=== PATIENT | male | born 1945 | race Caucasian/White ===

== ENCOUNTER 2017-01-08 00:34 | Emergency (ER) | payer MEDICARE ==
--- NOTE | 2017-01-08 01:06 | ERPHSYRPT ---
- History of Present Illness Time Seen by Provider: 01/08/17 01:00 Historian: patient Exam Limitations: no limitations Patient Subjective Stated Complaint: pt states he had a 2 episodes of chest pressure, midsternal. last episode lasted approx 5 minutes. stated he was short of breath during Triage Nursing Assessment: pt alert and oriented, answers questions approp. skin pink warm and dry. respirations nonlabored with lungs cta. pt ambualted to room. steady gait noted. heart rate78 sunus rhythm on m onitor. Physician History: This is a 71-year-old white male previously healthy arrives with complaint of pain in his anterior sternal region described as pressure associated with shortness of breath lasting 5 minutes which occurred approximately 7:00 patient took an Excedrin tablet and the pain went away. Patient states he laid down to go to bed then approximately 11:00 patient began to have the same pain again a pressure associated with shortness of breath lasting 5 minutes therefore he came into the emergency room. Patient denies nausea vomiting he has no fevers he states he has not been ill. Past medical history includes arthritis of the hips and shoulders. Past surgical history includes umbilical hernia repair. Social history patient denies tobacco alcohol or illicit drug use. Timing/Duration: today (pain lasting 5 minutes at 7:00p.m. and 11:00p.m. respectively) Activities at Onset: rest Quality: pressure Location: substernal Chest Pain Radiation: no radiation Severity of Pain-Max: moderate Severity of Pain-Current: none Modifying Factors: Improves With: nothing Associated Symptoms: shortness of breath, No nausea, No vomiting, No palpitations, No heartburn, No abdominal pain, No cough, No hurts to breathe, No diaphoresis, No chills, No fever, No fatigue, No weakness, No swelling/lump in chest, No syncope, No rash, No headache, No dizziness, No edema, No back pain Prior Chest Pain/Cardiac Workup: no prior chest pain Aspirin Treatment Today: 81 mg x 4 (1 full sized Excedrin tablet at home at 7 PM ) Allergies/Adverse Reactions: No Known Drug Allergies Allergy (Verified 01/08/17 01:25) Home Medications: Aspirin [Aspirin EC] 81 mg PO DAILY 01/08/17 [History] Cyclobenzaprine HCl 10 mg [Cyclobenzaprine 10 MG] 10 mg PO TID 01/08/17 [ History] Fenofibrate Nanocrystallized [Fenofibrate] 145 mg PO DAILY 01/08/17 [History] Meloxicam 7.5 mg [Mobic 7.5 MG] 7.5 mg PO BID 01/08/17 [History] Hx Tetanus, Diphtheria Vaccination/Date Given: Yes Hx Influenza Vaccination/Date Given: No Hx Pneumococcal Vaccination/Date Given: No Immunizations Up to Date: Yes - Review of Systems Constitutional: No Fever, No Chills Eyes: No Symptoms Ears, Nose, & Throat: No Symptoms Respiratory: Dyspnea, No Cough Cardiac: Chest Pain, No Edema, No Palpitations, No Syncope, No Orthopnea, No PND Abdominal/Gastrointestinal: No Abdominal Pain, No Vomiting, No Diarrhea, No Constipation, No Hematemesis, No Hematochezia, No Melena, No Dysphagia, No Appetite Changes Genitourinary Symptoms: No Dysuria Musculoskeletal: No Back Pain, No Neck Pain Skin: No Rash Neurological: No Dizziness, No Focal Weakness, No Sensory Changes Psychological: No Symptoms Endocrine: No Symptoms All Other Systems: Reviewed and Negative - Past Medical History Pertinent Past Medical History: No Neurological History: No Pertinent History ENT History: No Pertinent History Cardiac History: No Pertinent History Respiratory History: No Pertinent History Endocrine Medical History: No Pertinent History Musculoskeletal History: No Pertinent History GI Medical History: No Pertinent History History: No Pertinent History Psycho-Social History: No Pertinent History Male Reproductive Disorders: No Pertinent History Other Medical History: hx kidney stone passed with lithotripsy - Past Surgical History Past Surgical History: No Neuro Surgical History: No Pertinent History Cardiac: No Pertinent History Respiratory: No Pertinent History Gastrointestinal: No Pertinent History Genitourinary: No Pertinent History Musculoskeletal: No Pertinent History Male Surgical History: No Pertinent History - Social History Smoking Status: Never smoker Exposure to second hand smoke: No Drug Use: none Patient Lives Alone: No - Nursing Vital Signs Temperature: 98.2 F Temperature Source: Oral Pulse Rate: 79 Respiratory Rate: 16 Pain Intensity: 0 - Physical Exam General Appearance: no apparent distress, alert Eye Exam: PERRL/EOMI, eyes nml inspection Ears, Nose, Throat Exam: normal ENT inspection, moist mucous membranes Neck Exam: normal inspection, non-tender, supple, full range of motion Respiratory Exam: normal breath sounds, lungs clear, No respiratory distress Cardiovascular Exam: regular rate/rhythm, normal heart sounds Gastrointestinal/Abdomen Exam: soft, No tenderness, No mass Back Exam: normal inspection, No CVA tenderness, No vertebral tenderness Extremity Exam: normal inspection, normal range of motion Neurologic Exam: alert, oriented x 3, cooperative, normal mood/affect, sensation nml, No motor deficits Skin Exam: normal color, warm, dry SpO2 Interpretation: normal (99%) SpO2: 99 Oxygen Delivery: Room Air - Course Nursing assessment & vital signs reviewed: Yes EKG Interpreted by Me: RATE (81 bpm), NORMAL AXIS, NORMAL QRS, Other (EKG: Normal sinus arrhythmia, 81 bpm normal axis, no acute ST or T wave changes, essentially normal EKG) - Radiology Exams Chest X-ray Interpretation: Interpreted by me, Other (cxr: no acute disease process noted) Ordered Tests: Active Orders 24 hr Category Date Time Status Mussel Opener STAT Care 01/08/17 01:00 Active EKG-ER Only STAT Care 01/08/17 01:00 Active IV Insertion STAT Care 01/08/17 01:00 Active Pulse Oximetry (ED) STAT Care 01/08/17 01:00 Active CHEST 1 VIEW (PORTABLE) Stat Exams 01/08/17 01:00 Taken AMYLASE Stat Lab 01/08/17 01:06 Completed CBC W DIFF Stat Lab 01/08/17 01:06 Completed CMP Stat Lab 01/08/17 01:06 Completed D-DIMER QUANTITATION Stat Lab 01/08/17 01:06 Completed LIPASE Stat Lab 01/08/17 01:06 Completed TROPONIN Q3H Lab 01/08/17 01:07 Completed TROPONIN Q3H Lab 01/08/17 04:00 Ordered TROPONIN Q3H Lab 01/08/17 07:00 Ordered TROPONIN Q3H Lab 01/08/17 10:00 Ordered TROPONIN Q3H Lab 01/08/17 13:00 Ordered Lab/Rad Data: Laboratory Result Diagrams 01/08/17 01:06 01/08/17 01:06 Laboratory Results 01/08/17 01/08/17 01/08/17 Range/Units 01:07 01:06 01:06 WBC (4.0-10.5) K/mm3 RBC (4.1-5.6) M/mm3 Hgb (12.5-18.0) gm/dl Hct (42-50) % MCV (78-100) fl MCH (26-32) pg MCHC (32-36) g/dl RDW (11.5-14.0) % Plt Count (150-450) K/mm3 MPV (6-9.5) fl Gran % (36.0-66.0) % Lymphocytes % (24.0-44.0) % Monocytes % (0.0-12.0) % Eosinophils % (0.00-5.0) % Basophils % (0.0-0.4) % Basophils # (0-0.4) D-Dimer 0.595 H* (0.00-0.49) mg/L Sodium (136-145) mEq/L Potassium (3.5-5.1) mEq/L Chloride (98-107) mEq/L Carbon Dioxide (21-32) mEq/L Anion Gap (5-15) MEQ/L BUN (9-20) mg/dL Creatinine (0.55-1.30) mg/dl Estimated GFR ML/MIN Glucose (70-110) MG/DL Calcium (8.5-10.1) mg/dL Total Bilirubin (0.2-1.0) mg/dL AST (15-37) U/L ALT (12-78) U/L Alkaline Phosphatase (46-116) U/L Troponin I 0.063 H* (0.000-0.056) ng/ml Serum Total Protein (6.4-8.2) gm/dL Albumin (3.4-5.0) g/dL Amylase 69 (25-115) U/L Lipase 231 (73-393) U/L 01/08/17 01/08/17 Range/Units 01:06 01:06 WBC 7.4 (4.0-10.5) K/mm3 RBC 5.29 (4.1-5.6) M/mm3 Hgb 15.8 (12.5-18.0) gm/dl Hct 47.2 (42-50) % MCV 89.2 (78-100) fl MCH 29.9 (26-32) pg MCHC 33.5 (32-36) g/dl RDW 13.9 (11.5-14.0) % Plt Count 359 (150-450) K/mm3 MPV 10.1 H (6-9.5) fl Gran % 30.3 L (36.0-66.0) % Lymphocytes % 47.3 H (24.0-44.0) % Monocytes % 12.9 H (0.0-12.0) % Eosinophils % 8.7 H (0.00-5.0) % Basophils % 0.8 (0.0-0.4) % Basophils # 0.06 (0-0.4) D-Dimer (0.00-0.49) mg/L Sodium 142 (136-145) mEq/L Potassium 4.0 (3.5-5.1) mEq/L Chloride 106 (98-107) mEq/L Carbon Dioxide 26.3 (21-32) mEq/L Anion Gap 13.7 (5-15) MEQ/L BUN 20 (9-20) mg/dL Creatinine 1.45 H (0.55-1.30) mg/dl Estimated GFR 51 ML/MIN Glucose 126 H (70-110) MG/DL Calcium 8.9 (8.5-10.1) mg/dL Total Bilirubin 0.4 (0.2-1.0) mg/dL AST 26 (15-37) U/L ALT 30 (12-78) U/L Alkaline Phosphatase 97 (46-116) U/L Troponin I (0.000-0.056) ng/ml Serum Total Protein 7.6 (6.4-8.2) gm/dL Albumin 3.6 (3.4-5.0) g/dL Amylase (25-115) U/L Lipase (73-393) U/L - Progress Progress: improved Air Movement: fair Progress Note: 01/08/17 02:27 This is a 71-year-old white male with history of arthritis he arrives with complaint of pain in the anterior chest which has occurred 2 times prior to arrival when at 7:00 another at 11:00 both lasting about 5 minutes and associated with shortness of breath occurring at rest. Patient took Excedrin tablet full size at 7:00. Upon arrival patient had a mild elevated blood pressure otherwise vitals were stable EKG was essentially normal unfortunately however patient's troponin was elevated. Case is discussed with Lillian Reagan who is on-call for Dr. Banks at [facility] Will transfer patient to [facility] for further workup. - Departure Time of Disposition: 02:29 Departure Disposition: Transfer (transferred to to [facility], Lillian Reagan for Dr. Sejal Banks) Clinical Impression: Elevated troponin Chest pain Qualifiers: Chest pain type: unspecified Qualified Code(s): R07.9 - Chest pain, unspecified Condition: Fair Critical Care Time: No
[2017-01-08 01:15] LABS: BASOPHIL % 0.8 % (0.0-0.4); Eosinophil % 8.7 % (0.00-5.0); Granulocytes % 30.3 % (36.0-66.0); Lymphocytes % 47.3 % (24.0-44.0); Mean Cell Volume 89.2 fl (78-100); Mean Corpuscular Hemoglobin 29.9 pg (26-32); Mean Platelet Volume 10.1 fl (6-9.5); Monocytes % 12.9 % (0.0-12.0); Platelet Count 359 K/mm3 (150-450); Red Blood Count 5.29 M/mm3 (4.1-5.6); Red Cell Distribution Width 13.9 % (11.5-14.0); White Blood Count 7.4 K/mm3 (4.0-10.5)
[2017-01-08 01:32] LABS: LIPASE 231 U/L (73-393)
[2017-01-08 01:49] LABS: ALBUMIN 3.6 g/dL (3.4-5.0); ANION GAP 13.7 MEQ/L (5-15); BILIRUBIN,TOTAL 0.4 mg/dL (0.2-1.0); Carbon Dioxide 26.3 mEq/L (21-32); Total Protein 7.6 gm/dL (6.4-8.2)
[2017-01-08 03:16] VITALS: BP 157/79; O2SAT 97
[2017-01-08 03:23] VITALS: PULSE 102
--- NOTE | 2017-01-08 08:45 | XRAY ---
Indication: Chest pressure and short of breath. Comparison: None Portable chest clear. Heart and mediastinal structures within normal limits. Bony thorax intact. Impression: Radiographically nonacute chest.
== END 2017-01-08 03:05 | disposition short-term general hospital (02) ==
LOC: ED 00:34
DX: R07.89 Other chest pain (principal); R79.89 Other specified abnormal findings of blood chemistry; Z79.899 Other long term (current) drug therapy
CPT/HCPCS: 36000; 36415; 71010; 80053; 82150; 83690; 84484; 85025; 85379; 93005; 93041; 99285

== ENCOUNTER 2017-01-15 20:56 | Observation (INO) | payer MEDICARE, OTHER ==
[2017-01-15] MEDS ORDERED: Sodium Chloride 0.9% 1000 ML 1,000 ML IV STA (21:14)
[2017-01-15 21:21] LABS: BASOPHIL % 0.5 % (0.0-0.4); Eosinophil % 5.3 % (0.00-5.0); Granulocytes % 37.6 % (36.0-66.0); Lymphocytes % 39.6 % (24.0-44.0); Mean Cell Volume 89.8 fl (78-100); Mean Corpuscular Hemoglobin 29.7 pg (26-32); Mean Platelet Volume 10.2 fl (6-9.5); Platelet Count 366 K/mm3 (150-450); Red Blood Count 5.12 M/mm3 (4.1-5.6); Red Cell Distribution Width 13.8 % (11.5-14.0); White Blood Count 8.3 K/mm3 (4.0-10.5)
[2017-01-15 21:23] LABS: INR 1.07 (0.8-3.0)
[2017-01-15 21:26] LABS: PTT 28.4 SECONDS (24.1-36.1)
--- NOTE | 2017-01-15 21:27 | ERPHSYRPT ---
- History of Present Illness Time Seen by Provider: 01/15/17 21:01 Source: patient Exam Limitations: no limitations Physician History: ABOUT 20 MINUTES AGO PT WAS IN THE KITCHEN, LOST CONSCIOUSNESS FOR 2 SECONDS AND FELL HITTING THE BACK OF HIS HEAD ON THE WALL. PT C/O A DRY MOUTH; DENIES CHEST PAIN, SHORTNESS OF AIR, FEVER, NAUSEA, VOMITING. PT HAD CARDIAC STENT PLACEMENT AT [facility] 6 DAYS AGO AND WAS RELEASED 3 DAYS AGO. Allergies/Adverse Reactions: No Known Drug Allergies Allergy (Verified 01/15/17 21:55) Home Medications: Aspirin [Aspirin EC] 81 mg PO DAILY 01/08/17 [History] Cyclobenzaprine HCl 10 mg [Cyclobenzaprine 10 MG] 10 mg PO TID 01/08/17 [ History] Fenofibrate Nanocrystallized [Fenofibrate] 145 mg PO DAILY 01/08/17 [History] Meloxicam 7.5 mg [Mobic 7.5 MG] 7.5 mg PO BID 01/08/17 [History] Hx Tetanus, Diphtheria Vaccination/Date Given: Yes Hx Influenza Vaccination/Date Given: No Hx Pneumococcal Vaccination/Date Given: No - Past Medical History Pertinent Past Medical History: Yes Neurological History: No Pertinent History ENT History: No Pertinent History Cardiac History: No Pertinent History, Coronary Artery Disease, Myocardial Infarction ([place]) Respiratory History: No Pertinent History Endocrine Medical History: No Pertinent History Musculoskeletal History: Arthritis GI Medical History: No Pertinent History History: No Pertinent History Psycho-Social History: No Pertinent History Male Reproductive Disorders: No Pertinent History Other Medical History: hx kidney stone passed with lithotripsy - Past Surgical History Past Surgical History: Yes Neuro Surgical History: No Pertinent History Cardiac: No Pertinent History Respiratory: No Pertinent History Gastrointestinal: Hernia Repair Genitourinary: No Pertinent History Musculoskeletal: No Pertinent History Male Surgical History: No Pertinent History - Social History Smoking Status: Never smoker Exposure to second hand smoke: No Drug Use: none Patient Lives Alone: No - Review of Systems Constitutional: No Fever Ears, Nose, & Throat: Other (DRY MOUTH) Respiratory: No Dyspnea Cardiac: No Chest Pain Abdominal/Gastrointestinal: No Abdominal Pain, No Nausea, No Vomiting Musculoskeletal: No Back Pain, No Neck Pain Neurological: Other (SYNCOPE TODAY) All Other Systems: Reviewed and Negative Physical Exam - Nursing Vital Signs Nursing Vital Signs: Initial Vital Signs Temperature 98.9 F Temperature Source Oral Pulse Rate 88 Respiratory Rate 16 Blood Pressure [] 112/66 Pain Intensity 0 - [place] Scale Best Eye Response ([place]): (4) open spontaneously Best Verbal Response ([place]): (5) oriented Best Motor Response ([place]): (6) obeys commands [place] Total: 15 - Physical Exam General Appearance: alert Eye Exam: bilateral eye: PERRL, EOMI Ears, Nose, Throat Exam: TMs normal, dry mucous membranes, pharyngeal erythema Neck Exam: normal inspection Respiratory: lungs clear Cardiovascular: normal heart sounds Gastrointestinal: soft, normal bowel sounds Back Exam: normal range of motion Extremity Exam: normal inspection, No pedal edema Peripheral Pulses: dorsalis-pedis (R): 3+, dorsalis-pedis (L): 3+ Mental Status: alert, cooperative technical planner Exam: normal hearing, normal speech, PERRL, tongue midline, No facial droop Motor/Sensory: no motor deficit, no sensory deficit, negative Babinski's sign Skin Exam: warm, dry - Course Nursing assessment & vital signs reviewed: Yes EKG Interpreted by Me: RATE (90), Sinus Rhythm, NORMAL AXIS, ST Elev (V2) - Radiology Exams Chest X-ray Interpretation: Interpreted by me, No Pneumonia - CT Exams Head CT Interpretation: Tele-radiologist Report (NEGATIVE CT-HEAD) Ordered Tests: Active Orders 24 hr Category Date Time Status Agriculture Teacher STAT Care 01/15/17 21:14 Active EKG-ER Only STAT Care 01/15/17 21:14 Active EKG-ER Only STAT Care 01/15/17 21:36 Active IV Insertion STAT Care 01/15/17 21:14 Active Pulse Oximetry (ED) STAT Care 01/15/17 21:14 Active CHEST 1 VIEW (PORTABLE) Stat Exams 01/15/17 21:15 Taken HEAD WITHOUT CONTRAST [CT] Stat Exams 01/15/17 21:16 Taken AMYLASE Stat Lab 01/15/17 21:05 Completed CBC W DIFF Stat Lab 01/15/17 21:05 Completed CMP Stat Lab 01/15/17 21:05 Completed CULTURE, THROAT Stat Lab 01/15/17 21:45 Received LIPASE Stat Lab 01/15/17 21:05 Completed MAGNESIUM Stat Lab 01/15/17 21:05 Completed [place] Screen Stat Lab 01/15/17 21:05 Completed PROTIME WITH INR Stat Lab 01/15/17 21:05 Completed PTT Stat Lab 01/15/17 21:05 Completed STREP SCREEN-BETA A Stat Lab 01/15/17 21:45 Completed TROPONIN Q3H Lab 01/15/17 21:05 Completed TROPONIN Q3H Lab 01/16/17 00:15 Ordered TROPONIN Q3H Lab 01/16/17 03:15 Ordered TROPONIN Q3H Lab 01/16/17 06:15 Ordered TROPONIN Q3H Lab 01/16/17 09:15 Ordered UA Stat Lab 01/15/17 21:15 Ordered Urine Triage Profile Stat Lab 01/15/17 21:15 Ordered Medication Summary Discontinued Medications Generic Name Dose Route Start Last Admin Trade Name Freq PRN Reason Stop Dose Admin Sodium Chloride 1,000 mls @ 999 mls/hr 01/15/17 21:14 01/15/17 22:00 Sodium Chloride 0.9% 1000 Ml IV 01/15/17 22:14 999 mls/hr .Q1H1M STA Administration Sodium Chloride Confirm 01/15/17 21:58 Sodium Chloride 0.9% 1000 Ml Administered 01/15/17 21:59 Dose 1,000 mls @ ud .ROUTE .STK-MED ONE Lab/Rad Data: Laboratory Result Diagrams 01/15/17 21:05 01/15/17 21:05 Laboratory Results 01/15/17 01/15/17 01/15/17 Range/Units 21:45 21:05 21:05 WBC (4.0-10.5) K/mm3 RBC (4.1-5.6) M/mm3 Hgb (12.5-18.0) gm/dl Hct (42-50) % MCV (78-100) fl MCH (26-32) pg MCHC (32-36) g/dl RDW (11.5-14.0) % Plt Count (150-450) K/mm3 MPV (6-9.5) fl Gran % (36.0-66.0) % Lymphocytes % (24.0-44.0) % Monocytes % (0.0-12.0) % Eosinophils % (0.00-5.0) % Basophils % (0.0-0.4) % Basophils # (0-0.4) INR 1.07 (0.8-3.0) PTT 28.4 (24.1-36.1) SECONDS Sodium (136-145) mEq/L Potassium (3.5-5.1) mEq/L Chloride (98-107) mEq/L Carbon Dioxide (21-32) mEq/L Anion Gap (5-15) MEQ/L BUN (9-20) mg/dL Creatinine (0.55-1.30) mg/dl Estimated GFR ML/MIN Glucose (70-110) MG/DL Calcium (8.5-10.1) mg/dL Magnesium (1.8-2.4) mg/dL Total Bilirubin (0.2-1.0) mg/dL AST (15-37) U/L ALT (12-78) U/L Alkaline Phosphatase (46-116) U/L Troponin I 0.142 H* (0.000-0.056) ng/ml Serum Total Protein (6.4-8.2) gm/dL Albumin (3.4-5.0) g/dL Amylase (25-115) U/L Lipase (73-393) U/L Monoscreen (Negative) Streptococcus Screen NEGATIVE (Negative) 01/15/17 01/15/17 01/15/17 Range/Units 21:05 21:05 21:05 WBC 8.3 (4.0-10.5) K/mm3 RBC 5.12 (4.1-5.6) M/mm3 Hgb 15.2 (12.5-18.0) gm/dl Hct 46.0 (42-50) % MCV 89.8 (78-100) fl MCH 29.7 (26-32) pg MCHC 33.0 (32-36) g/dl RDW 13.8 (11.5-14.0) % Plt Count 366 (150-450) K/mm3 MPV 10.2 H (6-9.5) fl Gran % 37.6 (36.0-66.0) % Lymphocytes % 39.6 (24.0-44.0) % Monocytes % 17.0 H (0.0-12.0) % Eosinophils % 5.3 H (0.00-5.0) % Basophils % 0.5 (0.0-0.4) % Basophils # 0.04 (0-0.4) INR (0.8-3.0) PTT (24.1-36.1) SECONDS Sodium 136 (136-145) mEq/L Potassium 3.8 (3.5-5.1) mEq/L Chloride 101 (98-107) mEq/L Carbon Dioxide 25.6 (21-32) mEq/L Anion Gap 12.8 (5-15) MEQ/L BUN 32 H (9-20) mg/dL Creatinine 2.03 H (0.55-1.30) mg/dl Estimated GFR 34 ML/MIN Glucose 150 H (70-110) MG/DL Calcium 9.2 (8.5-10.1) mg/dL Magnesium 2.0 (1.8-2.4) mg/dL Total Bilirubin 0.6 (0.2-1.0) mg/dL AST 18 (15-37) U/L ALT 22 (12-78) U/L Alkaline Phosphatase 95 (46-116) U/L Troponin I (0.000-0.056) ng/ml Serum Total Protein 7.9 (6.4-8.2) gm/dL Albumin 3.7 (3.4-5.0) g/dL Amylase 65 (25-115) U/L Lipase 230 (73-393) U/L Monoscreen POSITIVE (Negative) Streptococcus Screen (Negative) - Progress Discussed with : Artur (OBS - 2221), Other (SPOKE WITH DR BUSTAMANTE(COVERING FOR DR BLANCHARD)(2205) - PT MAY BE ADMITTED TO [facility] AND HE WILL NOTIFY DR BLANCHARD.) - Departure Time of Disposition: 22:25 Departure Disposition: Observation Clinical Impression: SYNCOPE, ELEVATED TROPONIN, ELEVATED CREATININE, INFECTIOUS MONONUCLEOSIS, ARTHRITIS, CAD, S/P CARDIAC STENT PLACEMENT DAY 6, DEHYDRATION Condition: Fair Critical Care Time: No Referrals: AARON BONNER [Primary Care Provider] -
[2017-01-15 21:49] LABS: ALBUMIN 3.7 g/dL (3.4-5.0); ANION GAP 12.8 MEQ/L (5-15); BILIRUBIN,TOTAL 0.6 mg/dL (0.2-1.0); Carbon Dioxide 25.6 mEq/L (21-32); Potassium 3.8 mEq/L (3.5-5.1); Total Protein 7.9 gm/dL (6.4-8.2)
[2017-01-15] MEDS ORDERED: Sodium Chloride 0.9% 1000 ML 2,000 ML ONE (21:58)
[2017-01-15 22:37] LABS: COMPLETE URINE MICROSCOPIC? NO; Collection Type CLEAN CATCH; Ph 5.5 (5-6)
[2017-01-15] MEDS ORDERED: Phenergan 25 MG INJ IV PRN (22:40)
[2017-01-15] MEDS ORDERED: Nitrostat 0.4 MG Tablet SL PRN (22:40)
[2017-01-15] MEDS ORDERED: DILAUDID 2 MG INJECTION IV PRN (22:40)
[2017-01-15] MEDS ORDERED: TYLENOL 325 MG PO PRN (22:40)
[2017-01-15] MEDS ORDERED: BABY ASPIRIN 81 MG CHEW ONE (22:45)
[2017-01-15] MEDS: BABY ASPIRIN 81 MG CHEW PO ONE ×2 (22:48→22:53)
[2017-01-15] MEDS: Sodium Chloride 0.9% 1000 ML 1,000 ML IV SCH (23:35)
[2017-01-16] MEDS ORDERED: Lopressor 25MG Tab PO SCH (00:30)
[2017-01-16] MEDS ORDERED: Mobic 7.5 MG PO SCH (00:30)
[2017-01-16] MEDS: Sodium Chloride 0.9% 1000 ML 1,000 ML IV SCH ×2 (06:16→11:35)
[2017-01-16 06:36] LABS: BASOPHIL % 0.8 % (0.0-0.4); Granulocytes % 35.3 % (36.0-66.0); Lymphocytes % 39.1 % (24.0-44.0); Mean Cell Volume 90.6 fl (78-100); Mean Corpuscular Hemoglobin 29.7 pg (26-32); Mean Platelet Volume 9.8 fl (6-9.5); Monocytes % 17.8 % (0.0-12.0); Platelet Count 307 K/mm3 (150-450); Red Blood Count 4.48 M/mm3 (4.1-5.6); Red Cell Distribution Width 13.7 % (11.5-14.0); White Blood Count 7.6 K/mm3 (4.0-10.5)
[2017-01-16 07:16] LABS: ALBUMIN 2.9 g/dL (3.4-5.0); ANION GAP 14.1 MEQ/L (5-15); BILIRUBIN,TOTAL 0.5 mg/dL (0.2-1.0); Carbon Dioxide 24.1 mEq/L (21-32); Potassium 4.3 mEq/L (3.5-5.1); Total Protein 6.4 gm/dL (6.4-8.2)
--- NOTE | 2017-01-16 09:58 | XRAY ---
Exam: 3 views of the left shoulder from 01/16/2017. Comparison: None. Indication: Shoulder pain at night. Technique: AP internal rotation, AP external rotation, and Y views of the left shoulder were obtained. Findings: No acute fracture, dislocation, or bone destruction is seen. The left acromioclavicular joint appears intact. The glenohumeral joint space is not seen in optimal profile, but no significant abnormality is seen. No abnormal periarticular soft tissue calcifications are seen. Impression: 1. No significant focal bone or joint abnormality of the left shoulder is seen.
--- NOTE | 2017-01-16 10:02 | XRAY ---
Exam: 3 views of the right shoulder from 01/16/2017. Comparison: None. Indication: Right shoulder pain at night. Technique: AP internal rotation, AP external rotation, and Y views of the right shoulder were obtained. Findings: I see no acute fracture, dislocation, or bone destruction. The right shoulder joint space is not seen in optimal profile, but no significant abnormality is seen. There may be some minimal marginal glenoid spurring. I do note mild osteoarthritic change at the right acromioclavicular joint with minimal joint space narrowing and marginal spurring. No abnormal periarticular soft tissue calcifications are seen. Impression: 1. Minimal osteoarthritic change of the right acromioclavicular joint and minimal spurring at the margin of the glenoid of the right scapula. 2. Otherwise, no other bone or joint and a malleable the right shoulder is seen.
[2017-01-16] MEDS: PLAVIX 75 MG Tablet PO SCH (10:59)
[2017-01-16] MEDS: Lopressor 25MG Tab PO SCH ×2 (10:59→21:37)
[2017-01-16] MEDS: ECOTRIN 81 MG PO SCH (10:59)
--- NOTE | 2017-01-16 11:21 | XRAY ---
Exam: CT of the head without IV contrast from 01/15/2017. CTDI: 67.41 Comparison: None. Indication: Recent stent placement, patient states he stood up and "passed out", no injury. Technique: Non-IV contrast axial images were obtained through the brain. Reconstructed coronal and sagittal images were created and reviewed. Findings: The ventricles and cortical sulci/basilar cisterns are within normal limits of size for the patient's age. No focal mass effect or midline shift is seen. I see no evidence of acute intracranial bleed or abnormal extra cerebral fluid collection. No low attenuation lesion is seen to suggest a territorial infarct. The kumar matter-white matter interfaces appear within normal limits. The visualized paranasal sinuses and mastoid air cells appear clear. The visualized orbits reveal unremarkable appearance of the globes, optic nerves, extraocular muscles. Impression: 1. No acute intracranial bleed or other acute intracranial process is seen.
[2017-01-16] MEDS: Tricor 145 MG PO SCH (11:37)
--- NOTE | 2017-01-16 13:30 | HP ---
HISTORY OF PRESENT ILLNESS: This is a 71 year-old man who presented to the emergency department who reports that on 01/08/2017 he had chest pain and dyspnea and was brought to the emergency room. He was then transferred to [facility]. He reports having a heart cath with Dr. Nora Thurman this would have been either 01/08/2017 or 01/09/2017 after having a non-ST elevation myocardial infarction. He was then discharged this past from the hospital. He reports that yesterday he got up from his chair and walked across the kitchen. He then felt dizzy and had to hold onto the counter but then fell backwards hitting his head on a door jam. He thinks he was unconscious for about two seconds. He reports he got up and got a drink as his throat has been dry since he has been home from the hospital. He reports drinking well but still feeling like his throat was dry. He denies having syncopal episodes in the past. He had a head CT that was negative in the emergency department. He reported that the back of his head is still a little bit sore. He denied any chest pain with this episode. When they checked a troponin in the emergency room it was elevated and Dr. Nora Thurman was called. They did not think it was related to anything new but to his having had the myocardial infarction and heart catheterization recently REVIEW OF SYSTEMS: The patient reports that he has had some hip pain and shoulder pain which he has taken Mobic for without relief. He denies any abdominal pain or lower extremity edema. No dysuria. Earlier on 01/08/2017 when he had the chest pain he also had a headache at that time. He has had problems with insomnia. The rest of the review of systems was negative. PAST MEDICAL HISTORY: Kidney stones which he had a lithotripsy for, coronary artery disease. PAST SURGICAL HISTORY: Umbilical hernia repair by Dr. Royal. MEDICATIONS: Aspirin 81 mg p.o. daily, Atorvastatin 20 mg p.o. q.h.s., Plavix 75 mg daily, cyclobenzaprine 10 mg p.o. t.i.d., metoprolol tartrate 12.5 mg p.o. b.i.d., meloxicam 15 mg p.o. daily, nitroglycerin 0.4 mg sublingual every 5 minutes as needed, Fenofibrate 145 mg p.o. daily, lisinopril 10 mg p.o. daily. ALLERGIES: NKDA. SOCIAL HISTORY: Denies any tobacco. He occasionally drinks alcohol. He is and lives with his . FAMILY HISTORY: His mother is and had coronary artery disease with open heart surgery. His father is and had history of colon cancer but lived to be 94 years of age. LAB DATA AND TESTS: CBC was within normal limits. His creatinine was 2.03 on admission and repeat creatinine was 1.55. He had a baseline creatinine of 1.28 on 10/20/2016. Troponin on admission was 0.142. Serial troponins were checked and had been trending down with the last one being 0.117. His albumin was 2.9. [place] screen was weakly positive. Head CT was read as no acute intracranial bleed or other acute intracranial process. EKG had Q-wave in V1 and V2 with T-wave inversion in V1 and V2, V4 and V5, sinus rhythm with heart rate of 68 beats/minute. No ST changes are seen. ASSESSMENT AND PLAN: 1) SYNCOPE: I have asked for carotid Doppler's and cardiac echo, will continue with telemetry. I have asked for orthostatic vital signs to be checked, which the nurses have done and recorded as lying down 91/52, pulse 67, sitting 120/67, pulse 70 and standing 115/73 and pulse 78. The case was discussed with Dr. Jay who felt the elevated troponin was left over from the recent myocardial infarction. 2) CORONARY ARTERY DISEASE: Will continue with his aspirin and Plavix. 3) CHRONIC KIDNEY DISEASE WITH POSSIBLE ACUTE RENAL FAILURE. I have asked for Dr. Cervantes to see the patient. I stopped his meloxicam and instructed him not to take any NSAID's and he may take Tylenol as needed for the pain. 4) SHOULDER PAIN: I have ordered x-rays of his shoulders bilaterally.
--- NOTE | 2017-01-16 14:28 | CONS ---
CONSULT DATE: 01/16/2017 REASON FOR CONSULT: Evaluation of increased BUN and creatinine. HISTORY: Lucio Zavala is a very pleasant 71 year-old gentleman who was kitchen and lost consciousness for two seconds and fell hitting the back of his head. There was no laceration or bleeding. The patient was brought to the emergency room. He denied any chest pain or shortness of breath. The patient did not have any fever, chills, rigor, nausea or vomiting. He had cardiac stent placed at [facility] six days prior to this admission. The patient denies any prior knowledge of kidney disease. His creatinine was noted to be 2.03 mg% and so renal consultation was called. The patient states that he has been on nonsteroidals on a daily basis since November 2016. He was on 7.5 mg of meloxicam which was recently increased to 15 mg. He was lisinopril 10 mg daily. His blood pressure has been 100 systolic. The patient did not have any gross hypotension. He denies any vomiting or diarrhea but has difficulty in voiding. He states that he feels like he is not emptying his bladder well. He has a thin stream. He has hesitancy, urgency, frequency. The patient denies any nick setter arthralgia. No skin rash. No progressive leg swelling. REVIEW OF SYSTEMS: All systems reviewed in detail. No nausea, vomiting, diarrhea. No chills, fever, rigor. Fall as mentioned above. No chest pain, abdominal pain. No bleeding from any orifices. No focal weaknesses. No blurry vision. No prior knowledge of chronic kidney disease. All systems were reviewed in extensive detail, pertinent mentioned here and in history of present illness and the rest are negative. PAST MEDICAL HISTORY: Coronary artery disease. Shoulder pain. Hip pain. Osteoarthritis. Hypertriglyceridemia. Hypertension. No known history of chronic kidney disease. History of myocardial infarction. PAST SURGICAL HISTORY: Recent cardiac stents six days ago otherwise no major surgical history. HOME MEDICATIONS: Included aspirin, cyclobenzaprine, Fenofibrate, Meloxicam, lisinopril. Details of those were noted. All medications were reviewed. ALLERGIES: NKDA. SOCIAL HISTORY: No history of smoking, alcohol abuse or drug abuse. FAMILY HISTORY: No renal problems in the family. PHYSICAL EXAMINATION: Revealed a gentleman who was lying in bed flat in no respiratory distress, reasonable historian. Blood pressure 105/58, pulse rate 69/minute, respiratory rate 18/minute. Saturating 95% on room air. HEENT: Normocephalic, atraumatic. [place] conjunctivae, nonicteric sclera. NECK: Supple. No JVD. CHEST: Clear to auscultation. CVS: S1, S2 normal. No gallop. ABDOMEN: Soft, nontender. No organomegaly. EXTREMITIES: No cyanosis, clubbing or edema. SKIN: No skin rashes. Skin turgor normal. MUSCULOSKELETAL: No acute joint swelling, redness, nontender. NEUROLOGICAL: Nonfocal exam. Alert, awake, oriented. LAB DATA AND TESTS: Labs were reviewed. Creatinine was down to 1.5. Peak creatinine was 2.03. Troponins were borderline high. His potassium was 4.3. Calcium levels 8.2. Albumin 2.9. All of the tests were reviewed. X-rays were reviewed. ASSESSMENT: 1) ACUTE KIDNEY INJURY: Etiology of acute kidney injury appears related to hypotension along with concomitant use of lisinopril and Mobic. The patient was given IV fluids, creatinine was down from 2.03 mg% to 1.5 mg%. We will also rule out any acute obstructive uropathy. The patient has some voiding difficulty. We will get ultrasound of kidneys. I would agree with holding lisinopril and Mobic. Continue to monitor potassium and bicarbonate level until normal. 2) CHRONIC KIDNEY DISEASE, NOT OTHERWISE SPECIFIED: We will assess for underlying chronic kidney disease. We will get ultrasound of kidneys to check for kidney size, diffusion, will rule out renal stone, obstructive uropathy and renal disease. In view of his age we will check for paraproteinemia by sending serum protein electrophoresis, free light chain essay. I will recommend holding meloxicam. Etiology of chronic kidney disease would be related to atherosclerotic vascular disease, chronic of nonsteroidal. 3) HYPERTENSION: Relatively hypotensive. Discontinue lisinopril. Do not restart at the time of discharge. We can assess the need for ARB as an outpatient. 4) OSTEOARTHRITIS: Meloxicam has been discontinued, do not start at the time of discharge. 5) DIFFICULTY IN VOIDING/BENIGN PROSTATIC HYPERTROPHY: Check PSA level, check post-void bladder scan. At this time blood pressure is borderline at the lower end of the normal. We will possibly start Tamsulosin or alpha yvonne (selective) as an outpatient. 6) SYNCOPE: Recently he had cardiac stents. Troponin borderline high. Supervisor Telephone Answering Service the case, continue to monitor. We will also rule out any underlying urine infection. From renal prospective can be discharged when cleared by cardiology. We will follow up electrolytes as an outpatient.
--- NOTE | 2017-01-16 16:12 | XRAY ---
Exam: AP portable chest film (2 images) from 01/15/2017. Comparison: AP portable chest film from 01/08/2017. Indication: Syncope, recent coronary artery stent surgery. Findings: A second film was obtained because the costophrenic angles were barely cut off from the first image. The heart size and contour are normal. Mild tortuosity of the descending thoracic aorta is seen. The francis and mediastinal structures appear unremarkable. There is minimal elevation of the right hemidiaphragm as compared to the left hemidiaphragm. The lung ley are adequately expanded and appear clear. No air space infiltrates, vascular congestion, pneumothorax, or pleural fluid is seen. The visualized bones appear grossly intact. Impression: 1. No acute cardiopulmonary process is seen, no change from 01/08/2017.
[2017-01-16 17:43] LABS: Collection Type CATH
[2017-01-16 17:44] LABS: ADD URINE CULTURE? NO (NO); COMPLETE URINE MICROSCOPIC? NO; Ph 6.5 (5-6)
--- NOTE | 2017-01-16 19:21 | XRAY ---
Exam: Ultrasound of the bladder from 01/16/2017. Comparison: None. Indication: Unable to empty urinary bladder. Findings: The filled urinary bladder measured a maximum of 10.37 cm in AP dimension, 8.35 cm in width, and 16.39 cm in length for a calculated urinary bladder volume of 742.9 cc. The urinary bladder has a normal anechoic echotexture. No intraluminal masses or intraluminal calcifications are seen. The urinary bladder wall did not appear significantly thickened. The patient was then allowed to void. The postvoid urinary bladder volume measured 10.53 cm in AP dimension, 8.21 cm in width, and 15.74 cm in length for an estimated urinary bladder volume of 712.0 cc. Impression: 1. Very little urinary bladder emptying is seen on the post void images consistent with abnormal urinary bladder retention. See above.
--- NOTE | 2017-01-16 19:40 | XRAY ---
Exam: Bilateral duplex Doppler carotid ultrasound examination from 01/16/2017. Comparison: None. Indication: Syncope. Findings: On the right side, grayscale images and color flow images were obtained. A small amount of fibrous plaque is seen along the posterior aspect of the proximal right internal carotid artery. On the Doppler exam, peak systolic flow velocities in centimeters per second measure 96.4 within the common carotid artery, 133.8 within the external carotid artery, 62.8 and 51.1 within the proximal and distal internal carotid artery, respectively, and 24.8 within the right vertebral artery. The right vertebral artery reveals antegrade flow. The ICA to CCA peak systolic flow velocity ratio is 0.7 which is not elevated. On the left side, grayscale and color flow images were obtained. Minimal intimal thickening is seen within the left common carotid artery. I also see some mild fibrous plaque along both the anterior and posterior aspects of the carotid bulb. With the color flow images there appeared to be some mild narrowing within the proximal external carotid artery. The left internal carotid artery appeared open on the kumar scale and color flow images. A prominent left vertebral artery was seen. The Doppler data revealed a peak systolic flow velocities in centimeters per second of 113.5 within the common carotid artery, 132.6 within the external carotid artery, 79.7 and 85.9 within the proximal and distal internal carotid artery, respectively, and 45.2 within the vertebral artery. The left vertebral artery revealed antegrade flow. The peak ICA to CCA ratio measured 0.8 which is not elevated. Impression: 1. No hemodynamically significant stenosis is seen within either visualized common carotid artery or internal carotid artery. I do believe there is at least mild stenosis within the proximal left external carotid artery. 2. Both vertebral arteries reveal antegrade flow.
[2017-01-16] MEDS ORDERED: LIPITOR 40MG PO SCH (22:00)
[2017-01-16] MEDS ORDERED: ZOCOR 20MG PO SCH (22:00)
[2017-01-16] MEDS ORDERED: Flomax 0.4 MG PO SCH (22:00)
--- NOTE | 2017-01-17 07:37 | CONS ---
CONSULT DATE: 01/16/2017 BRIEF HISTORY: This is a 71 year-old male with known history of coronary artery disease status post recent anteroseptal myocardial infarction post PCI to the LAD who was admitted through the emergency room following a brief episode of fainting spells. The symptoms started last night when he got up from bed and apparently lost consciousness for about a couple of seconds but hit the back of the head. When he came out of it he was fully conscious. He was not confused. There has been no recurrence. The patient is known to have coronary artery disease who had recent percutaneous intervention of the LAD following an acute anteroseptal myocardial infarction. He denies any chest pains or any shortness of breath. CARDIAC RISK FACTORS: Negative for diabetes. History of hypertension. He has hyperlipidemia. He does not smoke. REVIEW OF SYSTEMS: MED ADMIN: No history of stroke or seizures. RESPIRATORY: No chronic cough or hemoptysis. GI: No history of peptic ulcer or colon disorder. : He has renal insufficiency. PERIPHERAL VASCULAR: No history of DVT or claudication. CURRENT MEDICATIONS: Aspirin, Plavix, Fenofibrate, metoprolol, Simvastatin. SOCIAL HISTORY: He is . He has no significant alcohol intake. PHYSICAL EXAMINATION: His blood pressure is 123/67 lying down when standing is 128/70 with a heart rate of 65, respirations about 14. GENERAL: The patient is an elderly male who is alert, oriented, who is currently chest pain free. HEENT: Unremarkable. NECK: No significant JVD. No carotid bruit. CHEST: The breath sounds are clear. CARDIAC: Heart tones are normal. There is no audible gallop. The rhythm is regular. ABDOMEN: Soft with normal bowel sounds. No bruits. EXTREMITIES: No significant edema with palpable distal pulses. LAB DATA AND DIAGNOSTIC TESTS: EKG showed normal sinus rhythm and changes of an old anteroseptal myocardial infarction. Troponin I is 0.117. The creatinine is down to 1.5. Serum electrolytes are normal. CBC shows hemoglobin 13.3, PLT 207,000. IMPRESSION: In essence the patient's fainting spells most likely secondary to orthostasis. I agree with discontinuing lisinopril at this time especially since his renal function is somewhat impaired. Continue with beta blockers, continue with statins and do antiplatelet therapy. He is currently angina free. Currently he does not have any significant cardiac arrhythmia. Will continue modifying his cardiac risk factors. I will follow up with you.
[2017-01-17] MEDS: ECOTRIN 81 MG PO SCH (10:00)
[2017-01-17] MEDS: Tricor 145 MG PO SCH (10:00)
[2017-01-17] MEDS: Lopressor 25MG Tab PO SCH (10:01)
[2017-01-17] MEDS: PLAVIX 75 MG Tablet PO SCH (10:01)
[2017-01-17] MEDS: Sodium Chloride 0.9% 1000 ML 1,000 ML IV SCH (10:05)
[2017-01-17 11:12] LABS: Kappa Free Light Chain 33.1 mg/L (0.0-22.2)
[2017-01-17 16:13] VITALS: BP 115/70; PULSE 78; O2SAT 94
--- NOTE | 2017-01-17 16:35 | XRAY ---
Exam: Renal ultrasound from 01/17/2017. Comparison: Urinary bladder ultrasound from 01/16/2017. Indication: Renal insufficiency, chronic kidney disease. Findings: The right kidney measures 11.5 cm in length and reveals a normal reniform shape. No solid renal mass or cyst is seen. No right-sided hydronephrosis is seen. The renal cortex thickness and echogenicity appear unremarkable. The left kidney measures 10.8 cm in length and demonstrates unremarkable shape. I note a 1.7 cm x 1.4 cm x 1.5 cm in diameter simple cyst at the inferior lateral aspect of the left kidney. No hydronephrosis or solid mass is seen. Renal cortex thickness and echogenicity appear within normal limits. Impression: 1. A small cyst measuring 1.7 cm in maximum diameter is seen within the lateral aspect of the inferior pole the left kidney. 2. Both kidneys appear within normal limits of size and reveal hydronephrosis or significant lobar atrophy.
[2017-01-17 16:43] LABS: ANION GAP 11.4 MEQ/L (5-15); Carbon Dioxide 26.4 mEq/L (21-32); Potassium 4.3 mEq/L (3.5-5.1)
--- NOTE | 2017-01-17 17:31 | PCM.DCORD ---
- Discharge Discharge Date: 01/17/17 Disposition: Home, Self-Care Condition: Good Prescriptions: New Tamsulosin HCl 0.4 mg [Flomax 0.4 MG] 0.4 mg PO HS #30 cap Continue Aspirin [Aspirin EC] 81 mg PO DAILY Clopidogrel Bisulfate [Clopidogrel] 75 mg PO DAILY Atorvastatin Calcium 20 mg PO HS Metoprolol Tartrate 12.5 mg PO BID Fenofibrate,Micronized 145 mg* [Tricor 145 MG] 145 mg PO DAILY Nitroglycerin 0.4 mg Tablet [Nitrostat 0.4 MG Tablet] 0.4 mg SL Q5MIN PRN MR X 3 PRN PRN Reason: Chest Pain Discontinued Lisinopril 10 mg [Zestril 10 MG] 1 tab DAILY Meloxicam 7.5 mg [Mobic 7.5 MG] 15 mg PO DAILY Cyclobenzaprine HCl 10 mg [Cyclobenzaprine 10 MG] 10 mg PO TID Additional Instructions: Obtain labs one week before follow up visit with Dr. Cervantes. DISCONTINUE AND DO NOT RESTART LISINOPRIL OR MOBIC. Leave Roque catheter for 10-14 days. To be removed at primary MD's office. Follow up with: AARON BONNER [Primary Care Provider] - 01/30/17 1:00 pm GREGORY CERVANTES [CONSULTING PHYSICIAN] - 01/31/17 2:00 pm ([facility])
[2017-01-18 13:39] LABS: PROTEIN BETA 2 0.38 g/dL (0.18-0.50)
--- NOTE | 2017-01-19 07:51 | ECHO ---
Transthoracic echocardiographic examination and color Doppler was done on 01/16/2017. INDICATION: Syncope. The patient is status post recent myocardial infarction. IMPRESSION: 1) MILD SEPTAL HYPOKINESIA. EJECTION FRACTION OF AROUND 50%. 2) TRACE MITRAL REGURGITATION. 3) TRACE TRICUSPID REGURGITATION. RIGHT VENTRICULAR SYSTOLIC PRESSURE OF 29 MM OF MERCURY. 4) LEFT VENTRICULAR HYPERTROPHY. The left ventricle is visualized and demonstrated mild septal hypokinesia. Ejection fraction of around 50%. There is mild left ventricular hypertrophy. The mitral valve is seen and this opens adequately. There is trace mitral regurgitation. Left atrium is normal. The aortic valve opens adequately. Right side chambers are normal. There is trace tricuspid regurgitation. Right ventricular systolic pressure of 29 mm of Mercury.
== END 2017-01-17 18:45 | disposition home or self-care (01) ==
LOC: ED 20:56 → MED SURG 22:29
PROVIDERS: ADMIT Family Medicine; ATTEND Family Medicine
DX: R55 Syncope and collapse (principal); I25.10 Atherosclerotic heart disease of native coronary artery without angina pectoris; N17.9 Acute kidney failure, unspecified; I12.9 Hypertensive chronic kidney disease with stage 1 through stage 4 chronic kidney disease, or unspecified chronic kidney disease; N18.9 Chronic kidney disease, unspecified; E78.5 Hyperlipidemia, unspecified; Z79.899 Other long term (current) drug therapy; I15.2 Hypertension secondary to endocrine disorders; M19.90 Unspecified osteoarthritis, unspecified site; N40.0 Benign prostatic hyperplasia without lower urinary tract symptoms
CPT/HCPCS: 36000; 36415; 70450; 71010; 73030; 76705; 76770; 80048; 80053; 80307; 81002; 82150; 82570; 83690; 83735; 83883; 84153; 84154; 84155; 84156; 84484; 85025; 85610; 85730; 86308; 86334; 87070; 87430; 87631; 93005; 93041; 93268; 93306; 93880; 94760; 96360; 99285; G0378; A9270-GY

== ENCOUNTER 2022-11-28 05:56 | Day surgery (SDC) | payer MEDICARE, OTHER ==
[2022-11-28] MEDS ORDERED: Lactated Ringers 1,000 ML IV SCH (06:30)
[2022-11-28] MEDS ORDERED: Xylocaine-Mpf 2% 5 Ml Vial ONE (07:59)
[2022-11-28] MEDS ORDERED: DIPRIVAN 200 MG/20 ML IV ONE (07:59)
[2022-11-28 09:14] VITALS: BP 136/78; PULSE 66; O2SAT 95
--- NOTE | 2022-11-28 14:45 | OP ---
SURGERY DATE/TIME: 11/28/2022 0801 PREOPERATIVE DIAGNOSIS: Positive Cologuard test. POSTOPERATIVE DIAGNOSIS: Small polyps in the descending and sigmoid colon. PROCEDURE: Colonoscopy with hot snare retrieval and removal of polyp and cold forceps biopsy of the second polyp. SURGEON: Dr. Azul. ANESTHESIA: MAC. Medications given by anesthesia department. HISTORY: The patient is a 77 -year-old white male patient presenting now for a positive Cologuard test. The patient was suggested to have colonoscopic evaluation for follow up. He was appraised of the risks of the procedure including the risk of perforation, phlebitis, untoward reaction to medication, bleeding and missed lesions. The patient verbalized his understanding and desired to have the procedure performed. DESCRIPTION OF PROCEDURE: The patient was given the medications by the anesthesia department. He had continuous pulse oximetry, ECG monitoring and intermittent blood pressure monitoring during the examination. He was placed in the left lateral decubitus position. A digital rectal examination was performed and revealed normal anal sphincter tone, no masses and normal prostate. The flexible Olympus pediatric colonoscope was used to intubate the rectum. A view of the colon was developed sequentially to the cecum. Upon insertion and withdrawal was noted a small polyp measuring approximately 0.7 cm in size in the descending colon this was biopsied and essentially destroyed using passes of cold forceps biopsy. There was a second slightly larger polyp measuring approximately 1 cm in size in the descending colon this was removed using hot polypectomy snare and retrieved for pathology evaluation. No other mucosal lesions being noted, the scope was removed and the patient tolerated the procedure well and was sent back to OP recovery in good condition.
== END 2022-11-28 09:20 | disposition home or self-care (01) ==
LOC: SDC 05:56
PROVIDERS: ATTEND Family Medicine
DX: D12.4 Benign neoplasm of descending colon (principal); D12.5 Benign neoplasm of sigmoid colon; R19.5 Other fecal abnormalities
CPT/HCPCS: 99100; J2704

== ENCOUNTER 2024-12-08 19:49 | Emergency (ER) | payer MEDICARE ==
[2024-12-08] MEDS ORDERED: NITRO-BID 2% UD PACKETS ONE (19:59)
[2024-12-08] MEDS ORDERED: BABY ASPIRIN 81 MG CHEW ONE (19:59)
[2024-12-08] MEDS: BABY ASPIRIN 81 MG CHEW PO ONE (20:00)
[2024-12-08] MEDS ORDERED: Sodium Chloride 0.9% 1000 ML 1,000 ML IV SCH (20:00)
[2024-12-08 20:11] LABS: Absolute Neutrophil Ct (ANC) 6.06 x10^3/uL (1.78-5.38); BASOPHIL % 0.6 % (0.2-1.2); Basophil (Absolute #) 0.07 x10^3/uL (0.01-0.08); Eosinophil % 1.9 % (0.8-7.0); Eosinophil (Absolute #) 0.23 x10^3/uL (0.04-0.54); Hematocrit 45.4 % (40.1-51.0); Hemoglobin 15.2 g/dL (13.7-17.5); IMMATURE GRAN # 0.03 x10^3u/L (0.001-0.031); IMMATURE GRAN % 0.3 % (0.001-0.429); Lymphocyte (Absolute #) 3.25 x10^3/uL (1.32-3.57); Lymphocytes % 27.5 % (21.8-53.1); Mean Cell Volume 89.4 fL (79.0-92.2); Mean Corpuscular Hemoglobin 29.9 pg (25.7-32.2); Mean Corpuscular Hgb Concent. 33.5 g/dL (32.3-36.5); Mean Platelet Volume 9.7 fL (9.4-12.4); Monocyte (Absolute #) 2.17 x10^3/uL (0.30-0.82); Monocytes % 18.4 % (5.3-12.2); Neutrophil % 51.3 % (34.0-67.9); Platelet Count 289 x10^3/uL (163-337); Red Blood Count 5.08 x10^6/uL (4.63-6.08); Red Cell Distribution Width 14.2 % (11.6-14.4); White Blood Count 11.8 x10^3/uL (4.23-9.07)
[2024-12-08] MEDS: NITRO-BID 2% UD PACKETS TOP ONE (20:20)
[2024-12-08] MEDS: HEPARIN 5000 UNITS/0.5 ML (HIGH RISK MED) IV ONE (20:20)
[2024-12-08] MEDS: Heparin 25,000 units/D5W: USE ORDER SET PROTO 25,000 UNITS/250 ML BAG IV SCH (20:20)
[2024-12-08] MEDS ORDERED: HEPARIN 5000 UNITS/0.5 ML (HIGH RISK MED) ONE (20:29)
[2024-12-08] MEDS ORDERED: Heparin 25,000 units/D5W: USE ORDER SET PROTO 25,000 UNITS/250 ML BAG IV ONE (20:29)
--- NOTE | 2024-12-08 20:42 | ERPHSYRPT ---
- History of Present Illness Time Seen by Provider: 12/08/24 20:14 Source: patient Exam Limitations: clinical condition Patient Subjective Stated Complaint: patient here for evaluation of chest pain and sob that has been getting worse - he has a history of cardiac stent 7 years ago Timing/Duration: today Severity: mild Associated Symptoms: shortness of breath, chest pain Allergies/Adverse Reactions: No Known Drug Allergies Allergy (Verified 11/28/22 06:17) Home Medications: Aspirin [Aspirin EC] 81 mg PO DAILY 01/08/17 [History] Atorvastatin Calcium 20 mg PO HS 01/15/17 [History] Metoprolol Tartrate 25 mg PO DAILY 01/16/17 [History] Nitroglycerin 0.4 mg Tablet [Nitrostat 0.4 MG Tablet] 0.4 mg SL Q5MIN PRN MR X 3 PRN 01/16/17 [History] Cholecalciferol (Vitamin D3) [Vitamin D3] 25 mcg PO DAILY 11/08/22 [History] Vit A/Vit C/Vit E/Zinc/Copper [Preservision Areds Tablet] 2 cap PO DAILY 11/08/22 [History] Hx Tetanus, Diphtheria Vaccination/Date Given: Yes Hx Influenza Vaccination/Date Given: No Hx Pneumococcal Vaccination/Date Given: No - Review of Systems Constitutional: No Symptoms Eyes: No Symptoms Ears, Nose, & Throat: No Symptoms Respiratory: No Symptoms Cardiac: Chest Pain Abdominal/Gastrointestinal: No Symptoms, Appetite Changes Musculoskeletal: No Symptoms - Past Medical History Pertinent Past Medical History: Yes Neurological History: No Pertinent History ENT History: No Pertinent History Cardiac History: High Cholesterol, Myocardial Infarction ([place]) Respiratory History: No Pertinent History Endocrine Medical History: No Pertinent History Musculoskeletal History: Arthritis GI Medical History: No Pertinent History History: No Pertinent History Psycho-Social History: No Pertinent History Male Reproductive Disorders: No Pertinent History Other Medical History: O.A. IN HIPS, SHOULDERS, STENT PLACED IN HEART 01/09/17 AND HAD BEEN IN HOSPITAL FOR 4 DAYS. UMBILICAL HERNIA 3 YEARS AGO APPROX. - Past Surgical History Past Surgical History: Yes Neuro Surgical History: No Pertinent History Cardiac: Cardiac Stent Respiratory: No Pertinent History Gastrointestinal: Hernia Repair Genitourinary: No Pertinent History Musculoskeletal: No Pertinent History Male Surgical History: No Pertinent History Other Surgical History: carpel tunnel surgery bilateral hands - Social History Smoking Status: Never smoker Exposure to second hand smoke: No Drug Use: none - Physical Exam General Appearance: no apparent distress Eye Exam: PERRL/EOMI Ears, Nose, Throat Exam: normal ENT inspection Respiratory Exam: normal breath sounds Cardiovascular Exam: regular rate/rhythm Gastrointestinal/Abdomen Exam: soft, normal bowel sounds - Course EKG Interpreted by Me: Sinus Rhythm (st elevation in the anterior leads ) Ordered Tests: Active Orders 24 hr Category Date Time Status Lifts And Cranes Inspector STAT Care 12/08/24 20:01 Active EKG-ER Only STAT Care 12/08/24 20:00 Active IV Insertion STAT Care 12/08/24 20:00 Active CHEST 1 VIEW (PORTABLE) Stat Exams 12/08/24 20:01 Taken CBC W DIFF Stat Lab 12/08/24 20:09 Completed CMP Stat Lab 12/08/24 20:09 Received NT PRO BNPII Stat Lab 12/08/24 20:09 Received TROPONIN Q4H Lab 12/08/24 20:09 Completed TROPONIN Q4H Lab 12/09/24 00:15 Ordered TROPONIN Q4H Lab 12/09/24 04:15 Ordered Medication Summary Generic Name Dose Route Start Last Admin Trade Name Freq PRN Reason Stop Dose Admin Sodium Chloride 1,000 mls @ 50 mls/hr 12/08/24 20:00 Sodium Chloride 0.9% 1000 Ml IV 01/07/25 19:59 .Q20H BAY Discontinued Medications Generic Name Dose Route Start Last Admin Trade Name Freq PRN Reason Stop Dose Admin Aspirin Confirm 12/08/24 19:59 Aspirin 81 Mg Tab.Chew Administered 12/08/24 20:00 Dose 324 mg .ROUTE .STK-MED ONE Aspirin 324 mg 12/08/24 20:00 Aspirin 81 Mg Tab.Chew PO 12/08/24 20:01 STAT ONE Heparin Sodium (Beef Lung) Confirm 12/08/24 20:29 Heparin 5000 Units/0.5 Ml 5,000 Unit/0.5 Ml Syr Administered 12/08/24 20:30 Dose 5,000 unit .ROUTE .STK-MED ONE Heparin Sodium/Dextrose Confirm 12/08/24 20:29 Heparin 25,000 Units/D5w: Use Order Set Nicolás Administered 12/08/24 20:30 Dose 25,000 units in 250 mls @ ud IV .STK-MED ONE Nitroglycerin Confirm 12/08/24 19:59 Nitroglycerin 1 Gm Packet Administered 12/08/24 20:00 Dose 1 gm .ROUTE .STK-MED ONE Nitroglycerin 1 gm 12/08/24 20:00 Nitroglycerin 1 Gm Packet TOP 12/08/24 20:01 STAT ONE Lab/Rad Data: Laboratory Result Diagrams 12/08/24 20:09 Laboratory Results 12/08/24 12/08/24 Range/Units 20:09 20:09 WBC 11.8 H (4.23-9.07) x10^3/uL RBC 5.08 (4.63-6.08) x10^6/uL Hgb 15.2 (13.7-17.5) g/dL Hct 45.4 (40.1-51.0) % MCV 89.4 (79.0-92.2) fL MCH 29.9 (25.7-32.2) pg MCHC 33.5 (32.3-36.5) g/dL RDW 14.2 (11.6-14.4) % Plt Count 289 (163-337) x10^3/uL MPV 9.7 (9.4-12.4) fL Gran % 51.3 (34.0-67.9) % Immature Gran % (Auto) 0.3 (0.001-0.429) % Nucleat RBC Rel Count 0.0 (0.00-0.2) % Eos # (Auto) 0.23 (0.04-0.54) x10^3/uL Immature Gran # (Auto) 0.03 (0.001-0.031) x10^3u/L Absolute Lymphs (auto) 3.25 (1.32-3.57) x10^3/uL Absolute Monos (auto) 2.17 H (0.30-0.82) x10^3/uL Absolute Nucleated RBC 0.00 (0.00-0.012) x10^3u/L Lymphocytes % 27.5 (21.8-53.1) % Monocytes % 18.4 H (5.3-12.2) % Eosinophils % 1.9 (0.8-7.0) % Basophils % 0.6 (0.2-1.2) % Absolute Granulocytes 6.06 H (1.78-5.38) x10^3/uL Basophils # 0.07 (0.01-0.08) x10^3/uL Troponin I < 0.012 (0.000-0.033) ng/mL - Progress Progress Note: . Patient was seen and evaluated for chest pain he was given aspirin and nitroglycerin chest pain protocol was initiated. Initial review of the EKG when compared to the old revealed elevation in V2 and V3. I spoke to the cardiolo gist on-call -he reviewed the EKG, he wants the patient treated for STEMI with heparin. He does not want any other medication at this time and wants the patient transferred ER to ER. I Spoke to the ER physician he was also updated with the EKG patient and family were updated with the plan and are agreeable to the transfer and have no further questions at this time. Patient's chest pain is improved after administration of the nitroglycerin 12/08/24 20:38 Medical Desision Making - Discussion of managment Care discussed with:: specialist Agreed on:: decision to admit Will see patient: in hospital - Departure Departure Disposition: Transfer Clinical Impression: Chest pain, STEMI (ST elevation myocardial infarction) Condition: Stable Critical Care Time: Yes Critical Care Time(excluding separately billable procedures): Critical 30-74 mins Referrals: AARON BONNER [Primary Care Provider] - Follow up/PCP as directed
[2024-12-08 20:43] LABS: ALBUMIN 4.3 g/dL (3.5-5.0); ANION GAP 13.9 MEQ/L (5-15); Calcium 9.5 mg/dL (8.4-10.2); Creatinine 1 1.03 mg/dL (0.66-1.25); EST GLOMERULAR FILTRATION RATE 73.4 ML/MIN; Total Protein 7.9 g/dL (6.3-8.2)
[2024-12-08 20:54] VITALS: RESP 18; TEMP 98
[2024-12-08 20:56] VITALS: O2SAT 98
[2024-12-08 20:57] VITALS: BP 140/89; PULSE 86
[2024-12-08 22:31] LABS: Slide Review 1 YES
--- NOTE | 2024-12-09 08:36 | XRAY ---
Indication: Chest pain. Comparison: January 15, 2017 Portable apical lordotic chest remains inflated and clear. Heart not enlarged again with slightly tortuous descending aorta. Bony thorax intact again with osteopenia and mild degenerative changes. Impression: Continued nonacute chest with chronic features.
[2024-12-11] MEDS: NITRO-BID 2% UD PACKETS TOP ONE (07:30)
== END 2024-12-08 20:39 | disposition short-term general hospital (02) ==
LOC: ED 19:49
DX: I21.3 ST elevation (STEMI) myocardial infarction of unspecified site (principal); R07.9 Chest pain, unspecified; R06.02 Shortness of breath; E78.5 Hyperlipidemia, unspecified; I25.2 Old myocardial infarction; Z79.899 Other long term (current) drug therapy
CPT/HCPCS: 36415; 71045; 80053; 83880; 84484; 85025; 93005; 93041; 96374; 96375; 99284; 99291; J1644; A9270-GY

== ENCOUNTER 2025-01-25 11:30 | Emergency (ER) | payer MEDICARE ==
[2025-01-25 11:44] VITALS: TEMP 97.3
--- NOTE | 2025-01-25 11:44 | ERPHSYRPT ---
- History of Present Illness Time Seen by Provider: 01/25/25 11:40 Source: patient, EMS, old records Exam Limitations: no limitations Physician History: This is an 79-year-old white male brought to the emergency department by the assistant statistician service and is a patient of Dr. Azul with a complaint of nausea and dizziness this morning when he woke up. The patient was dizzy yesterday and fell injuring his right shoulder and hitting the back of his head. He was seen at the emergency room of [facility]. I reviewed the reports from that outside facility radiographic studies. This includes CT scan of the head without contrast, CT scan of the cervical spine without contrast and x-ray of the right humerus. All of these were performed on 01/24/2025. The CT scan of the head without contrast states nonacute intracranial abnormality. No fractures. The CT scan of the cervical spine shows no acute cervical spine abnormality. The x-ray of the right humerus shows no acute osseous abnormality. The patient did not fall again this morning but was nauseated and felt dizzy. The paramedics brought him to the emergency department and by the time he arrived to the emergency department, his vital signs were stable and he did not have nausea or dizziness symptoms. His twelve-lead EKG shows rate controlled atrial flutter. He states that he supposed to be on Eliquis and he has been out of it for a week and has not called to see if he needs to continue this medication. Patient has a history of hypertension, prostate issues, hyperlipidemia, and coronary artery disease with cardiac stent placed in 2017. Patient denies shortness of breath and he denies chest pain. He has no abdominal pain. His right shoulder still hurts. He has no cervical spine pain Timing/Duration: today Severity: mild Associated Symptoms: nausea (Resolved), other (Dizziness but this has resolved) Allergies/Adverse Reactions: No Known Drug Allergies Allergy (Verified 01/25/25 11:44) Home Medications: Aspirin [Aspirin EC] 81 mg PO DAILY 01/08/17 [History] Atorvastatin Calcium 20 mg PO HS 01/15/17 [History] Nitroglycerin 0.4 mg Tablet [Nitrostat 0.4 MG Tablet] 0.4 mg SL Q5MIN PRN MR X 3 PRN 01/16/17 [History] Cholecalciferol (Vitamin D3) [Vitamin D3] 25 mcg PO DAILY 11/08/22 [History] Vit A/Vit C/Vit E/Zinc/Copper [Preservision Areds Tablet] 2 cap PO DAILY 11/08/22 [History] Apixaban [Eliquis] 5 mg PO BID 01/25/25 [History] Metoprolol Succinate 25 mg Xl* [Toprol-Xl 25MG Tablets] 25 mg PO DAILY 01/25/25 [History] Hx Tetanus, Diphtheria Vaccination/Date Given: Yes Hx Influenza Vaccination/Date Given: No Hx Pneumococcal Vaccination/Date Given: No Travel Risk - International Travel Have you traveled outside of the country in past 3 weeks: No - Emerging Infectious Disease Are you exhibiting symptoms associated with any current EIDs: No - Review of Systems Constitutional: No Symptoms Eyes: No Symptoms Ears, Nose, & Throat: No Symptoms Respiratory: No Symptoms Cardiac: No Symptoms Abdominal/Gastrointestinal: Nausea, No Abdominal Pain, No Vomiting, No Diarrhea, No Constipation Genitourinary Symptoms: No Symptoms Musculoskeletal: No Symptoms Skin: Other (Abrasion the back of his head) Neurological: Dizziness, No Headache Psychological: No Symptoms Endocrine: No Symptoms Hematologic/Lymphatic: No Symptoms Immunological/Allergic: No Symptoms All Other Systems: Reviewed and Negative - Past Medical History Pertinent Past Medical History: Yes Neurological History: No Pertinent History ENT History: No Pertinent History Cardiac History: High Cholesterol, Myocardial Infarction ([place]) Respiratory History: No Pertinent History Endocrine Medical History: No Pertinent History Musculoskeletal History: Arthritis GI Medical History: No Pertinent History History: No Pertinent History Psycho-Social History: No Pertinent History Male Reproductive Disorders: No Pertinent History Other Medical History: O.A. IN HIPS, SHOULDERS, STENT PLACED IN HEART 01/09/17 AND HAD BEEN IN HOSPITAL FOR 4 DAYS. UMBILICAL HERNIA 3 YEARS AGO APPROX. - Past Surgical History Past Surgical History: Yes Neuro Surgical History: No Pertinent History Cardiac: Cardiac Stent Respiratory: No Pertinent History Gastrointestinal: Hernia Repair Genitourinary: No Pertinent History Musculoskeletal: No Pertinent History Male Surgical History: No Pertinent History Other Surgical History: carpel tunnel surgery bilateral hands - Social History Smoking Status: Never smoker Exposure to second hand smoke: No Drug Use: none - Social Determinants of Health Will the patient participate in the screening: Declined to provide - Nursing Vital Signs Nursing Vital Signs: Initial Vital Signs Pulse Rate 58 L 01/25/25 11:31 Respiratory Rate 18 01/25/25 11:31 Blood Pressure 143/80 01/25/25 11:31 O2 Sat by Pulse Oximetry 99 01/25/25 11:31 Pain Scale Pain Intensity 0 - Physical Exam General Appearance: no apparent distress, alert, anxiety Eye Exam: PERRL/EOMI, eyes nml inspection, other (No nystagmus. No pupillary defects) Ears, Nose, Throat Exam: normal ENT inspection, moist mucous membranes Neck Exam: normal inspection, non-tender, supple, full range of motion Respiratory Exam: normal breath sounds, lungs clear, airway intact, No chest tenderness, No respiratory distress Cardiovascular Exam: regular rate/rhythm, normal heart sounds, normal peripheral pulses Gastrointestinal/Abdomen Exam: soft, normal bowel sounds, No tenderness Rectal Exam: deferred Back Exam: normal inspection, normal range of motion, No CVA tenderness, No vertebral tenderness Extremity Exam: normal inspection, normal range of motion, pelvis stable, tenderness (Right shoulder but has full range of motion) Neurologic Exam: alert, oriented x 3, cooperative, data warehouse manager II-XII nml as tested, sensation nml Skin Exam: abrasion (Skin abrasion posterior scalp) Lymphatic Exam: No adenopathy SpO2 Interpretation: normal O2 Delivery: Room Air - Course Nursing assessment & vital signs reviewed: Yes EKG Interpreted by Me: RATE (57atrial flutter, rate controlled), NORMAL AXIS, NORMAL INTERVALS, NORMAL QRS, NORMAL ST-T, Other (QTc is 465. No acute ischemia on today's twelve-lead EKG) Ordered Tests: Active Orders 24 hr Category Date Time Status Numerical Tool Programmer STAT Care 01/25/25 11:48 Active EKG-ER Only STAT Care 01/25/25 11:47 Active IV Insertion STAT Care 01/25/25 11:47 Active Pulse Oximetry (ED) STAT Care 01/25/25 11:47 Active HEAD WITHOUT CONTRAST [CT] Stat Exams 01/25/25 11:49 Completed SHOULDER Stat Exams 01/25/25 11:49 Taken CBC W DIFF Stat Lab 01/25/25 12:10 Completed CMP Stat Lab 01/25/25 12:10 Completed CULTURE,URINE Stat Lab 01/25/25 12:01 Received MAGNESIUM Stat Lab 01/25/25 12:10 Completed TROPONIN Q4H Lab 01/25/25 12:10 Completed TROPONIN Q4H Lab 01/25/25 16:00 Ordered TROPONIN Q4H Lab 01/25/25 20:00 Ordered UA W/RFX UR CULTURE Stat Lab 01/25/25 12:01 Completed Medication Summary Generic Name Dose Route Start Last Admin Trade Name Areli PRN Reason Stop Dose Admin Sodium Chloride 500 mls @ 500 mls/hr 01/25/25 13:33 01/25/25 13:56 Sodium Chloride 0.9% 500 Ml IV 01/25/25 14:32 500 mls/hr .Q1H ONE Administration Discontinued Medications Generic Name Dose Route Start Last Admin Trade Name Areli PRN Reason Stop Dose Admin Ceftriaxone Sodium 1 gm in 100 mls @ 200 mls/hr 01/25/25 13:33 01/25/25 13:56 Rocephin 1 Gm / 100 Ml Nacl IV 01/25/25 14:02 200 ml/hr STAT ONE 200 mls/hr Administration Ceftriaxone Sodium Confirm 01/25/25 13:49 Rocephin 1 Gm / 100 Ml Nacl Administered 01/25/25 13:50 Dose 1 gm in 100 mls @ ud IV .STK-MED ONE Sodium Chloride Confirm 01/25/25 13:49 Sodium Chloride 0.9% 500 Ml Administered 01/25/25 13:50 Dose 500 mls @ ud IV .STK-MED ONE Lab/Rad Data: Laboratory Result Diagrams 01/25/25 12:10 01/25/25 12:10 Laboratory Results 01/25/25 01/25/25 01/25/25 Range/Units 12:10 12:10 12:10 WBC 11.0 H (4.23-9.07) x10^3/uL RBC 5.02 (4.63-6.08) x10^6/uL Hgb 15.2 (13.7-17.5) g/dL Hct 45.4 (40.1-51.0) % MCV 90.4 (79.0-92.2) fL MCH 30.3 (25.7-32.2) pg MCHC 33.5 (32.3-36.5) g/dL RDW 14.6 H (11.6-14.4) % Plt Count 284 (163-337) x10^3/uL MPV 10.0 (9.4-12.4) fL Gran % 73.0 H (34.0-67.9) % Immature Gran % (Auto) 0.3 (0.001-0.429) % Nucleat RBC Rel Count 0.0 (0.00-0.2) % Eos # (Auto) 0.01 L (0.04-0.54) x10^3/uL Immature Gran # (Auto) 0.03 (0.001-0.031) x10^3u/L Absolute Lymphs (auto) 1.88 (1.32-3.57) x10^3/uL Absolute Monos (auto) 1.00 H (0.30-0.82) x10^3/uL Absolute Nucleated RBC 0.00 (0.00-0.012) x10^3u/L Lymphocytes % 17.1 L (21.8-53.1) % Monocytes % 9.1 (5.3-12.2) % Eosinophils % 0.1 L (0.8-7.0) % Basophils % 0.4 (0.2-1.2) % Absolute Granulocytes 8.05 H (1.78-5.38) x10^3/uL Basophils # 0.04 (0.01-0.08) x10^3/uL Sodium 139 (135-145) mmol/L Potassium 4.2 (3.5-5.1) mmol/L Chloride 105 (98-107) mmol/L Carbon Dioxide 21 L (22-30) mmol/L Anion Gap 16.7 H (5-15) MEQ/L BUN 18 (9-20) mg/dL Creatinine 1.04 (0.66-1.25) mg/dL Estimated GFR 72.6 ML/MIN Glucose 122 H (74-106) mg/dL Calcium 9.1 (8.4-10.2) mg/dL Magnesium 2.0 (1.6-2.3) mg/dL Total Bilirubin 1.30 (0.2-1.3) mg/dL AST 32 (17-59) U/L ALT 35 (0-50) U/L Alkaline Phosphatase 98 (38-126) U/L Troponin I < 0.012 (0.000-0.033) ng/mL Serum Total Protein 7.0 (6.3-8.2) g/dL Albumin 4.1 (3.5-5.0) g/dL Urine Color (Yellow) Urine Appearance (Clear) Urine pH (4.6-8.0) Ur Specific [place] (1.005-1.030) Urine Protein (Negative) Urine Glucose (UA) (Negative) mg/dL Urine Ketones (Negative) Urine Blood (Negative) Urine Nitrite (Negative) Urine Bilirubin (Negative) Urine Urobilinogen (0.2) mg/dL Ur Leukocyte Esterase (Negative) U Hyaline Cast (Auto) (0-2) /LPF Urine Microscopic RBC (0-5) /HPF Urine Microscopic WBC (0-5) /HPF Ur Epithelial Cells (None Seen) /HPF Urine Bacteria (None Seen) /HPF Urine Culture Reflexed (NO) 01/25/25 Range/Units 12:01 WBC (4.23-9.07) x10^3/uL RBC (4.63-6.08) x10^6/uL Hgb (13.7-17.5) g/dL Hct (40.1-51.0) % MCV (79.0-92.2) fL MCH (25.7-32.2) pg MCHC (32.3-36.5) g/dL RDW (11.6-14.4) % Plt Count (163-337) x10^3/uL MPV (9.4-12.4) fL Gran % (34.0-67.9) % Immature Gran % (Auto) (0.001-0.429) % Nucleat RBC Rel Count (0.00-0.2) % Eos # (Auto) (0.04-0.54) x10^3/uL Immature Gran # (Auto) (0.001-0.031) x10^3u/L Absolute Lymphs (auto) (1.32-3.57) x10^3/uL Absolute Monos (auto) (0.30-0.82) x10^3/uL Absolute Nucleated RBC (0.00-0.012) x10^3u/L Lymphocytes % (21.8-53.1) % Monocytes % (5.3-12.2) % Eosinophils % (0.8-7.0) % Basophils % (0.2-1.2) % Absolute Granulocytes (1.78-5.38) x10^3/uL Basophils # (0.01-0.08) x10^3/uL Sodium (135-145) mmol/L Potassium (3.5-5.1) mmol/L Chloride (98-107) mmol/L Carbon Dioxide (22-30) mmol/L Anion Gap (5-15) MEQ/L BUN (9-20) mg/dL Creatinine (0.66-1.25) mg/dL Estimated GFR ML/MIN Glucose (74-106) mg/dL Calcium (8.4-10.2) mg/dL Magnesium (1.6-2.3) mg/dL Total Bilirubin (0.2-1.3) mg/dL AST (17-59) U/L ALT (0-50) U/L Alkaline Phosphatase (38-126) U/L Troponin I (0.000-0.033) ng/mL Serum Total Protein (6.3-8.2) g/dL Albumin (3.5-5.0) g/dL Urine Color Yellow (Yellow) Urine Appearance Clear (Clear) Urine pH 6.0 (4.6-8.0) Ur Specific [place] 1.020 (1.005-1.030) Urine Protein 30 (Negative) Urine Glucose (UA) Negative (Negative) mg/dL Urine Ketones 15 A (Negative) Urine Blood Negative (Negative) Urine Nitrite Negative (Negative) Urine Bilirubin Negative (Negative) Urine Urobilinogen 0.2 (0.2) mg/dL Ur Leukocyte Esterase Small A (Negative) U Hyaline Cast (Auto) NONE SEEN (0-2) /LPF Urine Microscopic RBC 0-2 (0-5) /HPF Urine Microscopic WBC 6-10 A (0-5) /HPF Ur Epithelial Cells None Seen (None Seen) /HPF Urine Bacteria None Seen (None Seen) /HPF Urine Culture Reflexed YES (NO) - Progress Progress: improved Progress Note: 01/25/25 12:25 My medical decision making and the assignment of moderate complexity of this patient's medical issue today is based on review of the patient's past medical history, review the patient's medication list, reviewed patient drug allergy list, history present illness and physical findings on examination. The workup in this patient includes CT scan of the head, intravenous line placement, twelve-lead EKG, troponin level, magnesium level, CBC, CMP, urinalysis, x-ray of the right shoulder and review of the radiographic studies from [facility]. Differential diagnosis includes but is not limited to dizziness/vertigo, electrolyte abnormalities, arrhythmia, dehydration, urinary tract infection, acute intracranial abnormality, right shoulder contusion versus fracture/dislocation 01/25/25 13:40 I interpreted the patient's laboratory data results. Based on the laboratory data results, the patient has evidence of mild dehydration and a urinary tract infection. I interpreted the patient's preliminary x-ray report of the right shoulder. I do not appreciate an acute fracture or dislocation. 01/25/25 14:[address] scan of the head without contrast was interpreted by the radiologist and I reviewed the impression. The impression states no acute ischemic insult. Bilateral microvascular ischemic angiopathy noted. Age-related atrophy. No interval change when compared to CT scan of the head without contrast dated 01/15/2017. Counseled pt/family regarding: lab results, diagnosis, need for follow-up, rad results Medical Desision Making - Independent Historian Additional History obtained from: Family, Relative/friend - Diagnostic Testing Diagnostic test were ordered, analyzed, and reviewed by me: Yes Radiological Interpretation: Interpreted by me, Reviewed by me, Teleradiologist Report - Risk of complications The pt has a mod risk of morbidity or mortality based on: Need for prescription drug management - Departure Departure Disposition: Home Clinical Impression: Nausea, Dizziness Condition: Stable Critical Care Time: No Referrals: AARON AZUL [Primary Care Provider, [facility]] - Follow up/PCP as directed Additional Instructions: Drink plenty of clear liquids before advancing your diet. Take your antibiotics and other medications as prescribed. Call your prescribing provider on 01/27/2025, to make arrangements for follow-up appointment for further evaluation management. Prescriptions: Ondansetron ODT 4 MG [Zofran Odt 4 mg] 4 mg PO Q6H PRN PRN #10 tablet PRN Reason: Vomiting Cefdinir 300 mg PO BID #14 cap
[2025-01-25 12:14] LABS: Absolute Neutrophil Ct (ANC) 8.05 x10^3/uL (1.78-5.38); BASOPHIL % 0.4 % (0.2-1.2); Basophil (Absolute #) 0.04 x10^3/uL (0.01-0.08); Eosinophil % 0.1 % (0.8-7.0); Eosinophil (Absolute #) 0.01 x10^3/uL (0.04-0.54); Hematocrit 45.4 % (40.1-51.0); Hemoglobin 15.2 g/dL (13.7-17.5); IMMATURE GRAN # 0.03 x10^3u/L (0.001-0.031); IMMATURE GRAN % 0.3 % (0.001-0.429); Lymphocyte (Absolute #) 1.88 x10^3/uL (1.32-3.57); Lymphocytes % 17.1 % (21.8-53.1); Mean Cell Volume 90.4 fL (79.0-92.2); Mean Corpuscular Hemoglobin 30.3 pg (25.7-32.2); Mean Corpuscular Hgb Concent. 33.5 g/dL (32.3-36.5); Monocytes % 9.1 % (5.3-12.2); Platelet Count 284 x10^3/uL (163-337); Red Blood Count 5.02 x10^6/uL (4.63-6.08); Red Cell Distribution Width 14.6 % (11.6-14.4)
[2025-01-25 12:22] LABS: Appearance Clear (Clear); Bacteria None Seen /HPF (None Seen); Bilirubin Negative (Negative); Blood Negative (Negative); Epithelial Cells None Seen /HPF (None Seen); Glucose, Urine Negative (Negative); Hyaline Casts NONE SEEN /LPF (0-2); Ketones 15 (Negative); Leukocyte Esterase Small (Negative); Nitrite Negative (Negative); Protein,Urine Dip 30 (Negative); RBC 0-2 /HPF (0-5); Urobilinogen 0.2 mg/dL (0.2)
[2025-01-25 12:28] LABS: ALBUMIN 4.1 g/dL (3.5-5.0); ANION GAP 16.7 MEQ/L (5-15); BILIRUBIN,TOTAL 1.3 mg/dL (0.2-1.3); Calcium 9.1 mg/dL (8.4-10.2); Creatinine 1 1.04 mg/dL (0.66-1.25); EST GLOMERULAR FILTRATION RATE 72.6 ML/MIN; Potassium 4.2 mmol/L (3.5-5.1)
--- NOTE | 2025-01-25 13:02 | XRAY ---
CLINICAL HISTORY: dizziness COMPARISON: 01/15/2017 20:12:50 ELECTRICIAN APPRENTICE POWERHOUSE TECHNIQUE: Axial non-contrast CT scan of the brain was performed from the skull base to the high parietal region. One of the following dose reduction techniques were utilized for this exam: Automated exposure control, adjustment of the mA and/or kV according to patient size, use of iterative reconstruction. CTDI: 53.92, DLP: 1016.25 FINDINGS: Brain Parenchyma: Bilateral periventricular hypodenseiteis are noted No evidence of acute infarct, hemorrhage, or mass effect. No abnormal areas of hypo- or hyperattenuation. Ventricular System: Ventricles are normal in size and configuration. No evidence of hydrocephalus or ventricular enlargement. Subarachnoid Spaces: Prominent intra and extra-axial CSF spaces are noted No evidence of subarachnoid hemorrhage or extra-axial fluid collections. Cerebellum and Brainstem: Normal size and signal. No masses, lesions, or areas of abnormal density. Orbits: Normal appearance of the globes, optic nerves, and extraocular muscles. No evidence of orbital masses or abnormal density. Sinuses: Clear paranasal sinuses. No evidence of sinusitis or mucosal thickening. Mastoid Air Cells: Clear mastoid air cells. No evidence of mastoiditis. Skull: Normal skull morphology. IMPRESSION: 1. No acute ischemic insult is noted 2. Bilateral microvascular ischemic angiopathy is noted 3. Age-related atrophy is noted 4. No interval change 5. Please correlate clinically Electronically Signed by: Lucas Vizcarra MD. (01/25/2025 12:58:22 EDT)
[2025-01-25] MEDS ORDERED: ROCEPHIN 1 GM / 100 ML NaCl 1 GM/100 ML IVPB IV ONE (13:49)
[2025-01-25] MEDS ORDERED: Sodium Chloride 0.9% 500 ML 500 ML IV ONE (13:49)
[2025-01-25] MEDS: ROCEPHIN 1 GM / 100 ML NaCl 1 GM/100 ML IVPB IV ONE (13:56)
[2025-01-25] MEDS: Sodium Chloride 0.9% 500 ML 500 ML IV ONE (13:56)
[2025-01-25 14:21] VITALS: BP 150/76
[2025-01-25 14:23] VITALS: PULSE 55; RESP 22; O2SAT 98
--- NOTE | 2025-01-25 21:31 | XRAY ---
Indication: Pain following fall. Comparison: None 3 view right shoulder demonstrates osteopenia, moderate AC degenerative changes, minimal/mild multilevel cervicothoracic degenerative spondylosis, and incompletely visualized mild dextroscoliosis. No acute bony, articular, or soft tissue abnormalities.
== END 2025-01-25 14:37 | disposition home or self-care (01) ==
LOC: ED 11:30
DX: R42 Dizziness and giddiness (principal); R11.0 Nausea; M25.511 Pain in right shoulder; I10 Essential (primary) hypertension; E78.5 Hyperlipidemia, unspecified; Z79.01 Long term (current) use of anticoagulants; Z79.899 Other long term (current) drug therapy
CPT/HCPCS: 36415; 70450; 73030; 80053; 81001; 83735; 84484; 85025; 87086; 93005; 93041; 94760; 96374; 99284; 99285; J0696